=== PATIENT | female | born 1995 | race Caucasian/White ===

== ENCOUNTER 2018-12-20 19:31 | Emergency (ER) | payer OTHER ==
[~2018-12-20] VITALS: Ht 162.6 cm; Wt 68.2 kg
[2018-12-20 19:45] VITALS: Ht 162.6 cm; Wt 68.2 kg
[2018-12-20] MEDS ORDERED: BUPROPION HCL75 MG (19:46)
[2018-12-20] MEDS ORDERED: TORADOL10 MG PO (21:21)
[2018-12-20 21:25] VITALS: BP 127/78
== END 2018-12-20 21:25 | disposition home or self-care (01) ==
LOC: D.ER 19:31
DX: S46.812A Strain of other muscles, fascia and tendons at shoulder and upper arm level, left arm, initial encounter (principal); S46.811A Strain of other muscles, fascia and tendons at shoulder and upper arm level, right arm, initial encounter; V43.52XA Car driver injured in collision with other type car in traffic accident, initial encounter; Y93.89 Activity, other specified; Y92.410 Unspecified street and highway as the place of occurrence of the external cause; M54.5 Low back pain